=== PATIENT | female | born 1930 | race Asian ===

== ENCOUNTER 2017-01-11 14:04 | Observation (INO) ==
--- NOTE | 2017-01-11 14:26 | Emergency Department Note ---
START Narrative - START START: I did see patient immediately upon arrival and also spoke with the granddaughter and I did examine the patient. She does not have any abdominal pain. On my exam the abdomen is soft and nontender without rigidity, rebound, guarding. Minimal coarse lung sounds but no wheezing. Heart is regular without murmur. Does have fever. I did not see the patient in conjunction with the family medicine warehouse distribution specialist Dr. orozco. I did participate in the importance elements of the history, exam, diagnosis and plan. [id number]
--- NOTE | 2017-01-11 14:46 | Emergency Department Note ---
Disposition Clinical Impression: Pneumonia Qualifiers: Pneumonia type: due to unspecified organism Laterality: right Lung location: upper lobe of lung Qualified Code(s): J18.1 - Lobar pneumonia, unspecified organism Disposition: Admitted As Inpatient Condition: Good Referrals: NO,PCP [Primary Care Provider] - Forms: ED Satisfaction Letter Time of Disposition: 16:54 General Adult HPI - General Chief complaint: ED Fever Stated complaint: Fever / Dizzy / Diarrhea Time Seen by Provider: 01/11/17 14:08 Source: EMS Mode of arrival: private vehicle Limitations: language barrier Nursing Notes Reviewed: Yes Vital Signs Reviewed: Yes (febrile, hypoxic) - History of Present Illness HPI Narrative: Ms. Rahman is a 86 -year-old female that presents with abdominal pain, diarrhea and vomiting today. Patient only notes a few episodes of diarrhea and states abdominal pain has resolved. Agency was most concerned with increased urination. Additional complaints of cough, shortness of breath, dizziness, increased urination. Patient does not have home oxygen. 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 Patient sees Dr. Saha at [facility] as her primary care physician, last seen yesterday. Patient denies any sick contacts. Patient has not had any recent meals that were not shared with entire family, no other family members were sick. Family does note trip to [facility] approximately 2 months ago. PMH includes GERD, urinary incontinence, HLD, HTN. Pt Subjective Complaint: chills,dyspnea, increased urination Location: abdomen Pain Scale: 4 Quality: aching Consistency: intermittent - Related Data Home Medications Medication Instructions Recorded Confirmed Loratadine [Claritin] 10 mg PO DAILY 01/11/17 01/11/17 Meclizine HCl [Verticalm] 25 mg PO DAILY 01/11/17 01/11/17 Omeprazole [PriLOSEC] 20 mg PO DAILY 01/11/17 01/11/17 Rosuvastatin Calcium [Crestor] 10 mg PO HS 01/11/17 01/11/17 Allergies Allergy/AdvReac Type Severity Reaction Status Date / Time No Known Allergies Allergy Verified 01/17/16 20:18 All systems ED: reviewed and negative except as stated. Constitutional: Reports: chills ENT ED: Denies: congestion Cardiovascular: Denies: chest pain, syncope Respiratory: Reports: cough, dyspnea Gastrointestinal: Reports: abdominal pain, nausea, vomiting, diarrhea. Denies: hematemesis, melena, hematochezia Genitourinary: Reports: frequency. Denies: dysuria, hematuria Neurological: Reports: headache, weakness Endocrine: Reports: fatigue Past Medical History - Past Medical History Attestation: Yes The following information was validated with the patient. Source: patient, old records reviewed, obtained from family Medical history: Reports: GERD, hyperlipidemia, hypertension, other Psychiatric history: Reports: no psych history TECHNICAL SOLUTIONS ENGINEER history: Reports: no TECHNICAL SOLUTIONS ENGINEER history - Social History Smoking Status: Never smoker Smokeless Tobacco Status: No Alcohol use: Reports: none Drug use: Reports: none Physical Exam - General Limitations: language barrier General appearance: alert - Head Head exam: atraumatic, normocephalic - Eye Eye exam: Present: normal appearance, EOMI - ENT ENT exam: normal exam, normal oropharynx - Neck Neck exam: Present: normal inspection, full ROM - Chest Chest inspection: Present: normal inspection, symmetric chest wall rise - Respiratory Respiratory exam: Absent: respiratory distress, wheezes - Cardiovascular Cardiovascular exam: Present: regular rate, normal rhythm, +S1, +S2 - Abdominal Exam Abdominal exam: Present: soft, Non-Tender (to palpation), normal bowel sounds. Absent: distention, guarding, rebound Course - Reevaluation(s) Reevaluation #1: Patient started on IV antibiotics for Community acquired pneumonia. Patient complaining of chronic right shoulder pain and continued chills, requesting medication for fever. Time: 16:54 - Consultations Consultation #1: Spoke to hospitalist, Dr. Helm, who accepted patient. Time: 18:09 Vital Signs Temperature 100.9 F H 01/11/17 14:08 Pulse Rate 101 01/11/17 14:08 Respiratory Rate 16 01/11/17 14:08 Blood Pressure 173/67 01/11/17 14:08 O2 Sat by Pulse Oximetry 92 L 01/11/17 14:08 Temperature 100.9 F H 01/11/17 14:08 Pulse Rate 85 01/11/17 17:17 Respiratory Rate 18 01/11/17 17:17 Blood Pressure 154/61 01/11/17 17:17 O2 Sat by Pulse Oximetry 93 L 01/11/17 17:17 Oxygen Delivery Oxygen Delivery Nasal Cannula Medical Decision Making - Medical Records Medical records reviewed: Yes I reviewed the patient's medical records. - Lab Data Lab results reviewed: Yes I reviewed the patient's lab results. Result diagrams: 01/11/17 15:00 01/11/17 15:00 Lab Results 01/11/17 01/11/17 01/11/17 Range/Units 14:53 15:00 15:00 WBC 13.3 H (4.3-11.1) K/mcL RBC 3.90 (3.82-4.97) M/mcL Hgb 11.3 L (11.5-15.4) g/dL Hct 34.7 L (35.3-44.9) % MCV 89.0 (83.0-100.0) fL MCH 29.0 (28.0-33.3) pg MCHC 32.6 (31.6-35.5) g/dL RDW 12.6 (11.5-14.5) % Plt Count 190 (140-400) K/mcL MPV 10.3 (9.4-12.4) fL Immature Gran % 0.6 (0-4) % Seg Neutrophils % 89.1 % Lymphocytes % 4.7 % Monocytes % 5.3 % Eosinophils % 0.1 % Basophils % 0.2 % Neutrophils # 11.9 H (1.6-8.9) K/mcL Lymphocytes # 0.6 (0.6-4.6) K/mcL Monocytes # 0.7 (0.0-1.3) K/mcL Eosinophils # 0.0 (0.0-0.6) K/mcL Basophils # 0.0 (0.0-0.2) K/mcL Immature Plt Fraction 5.2 (1.1-6.1) % Sodium 134 L (136-145) mEq/L Potassium 3.6 (3.5-4.5) mEq/L Chloride 99 (98-109) mEq/L Carbon Dioxide 24 (19-29) mEq/L BUN 15 (7-20) mg/dL Creatinine 0.95 (0.57-1.11) mg/dL Est GFR ( Amer) > 60 (> 60) Est GFR (Non-Af Amer) 56 L (> 60) BUN/Creatinine Ratio 16 (6-26) Glucose 134 H (70-99) mg/dL Calculated Osmolality 281 (280-300) Lactic Acid (0.5-2.2) mmol/L Calcium 8.6 (8.6-10.8) mg/dL Urine Color Yellow (Yellow) Urine Clarity Clear (Clear) Urine pH 7.0 (5.0-8.0) pH Units Ur Specific Miles 1.020 (1.010-1.025) Urine Protein Trace (Neg-Trace) mg/dL Urine Glucose (UA) Normal (Normal) mg/dL Urine Ketones Negative (Negative) mg/dL Urine Blood Trace H (Negative) Urine Nitrite Negative (Negative) Urine Bilirubin Negative (Negative) Urine Urobilinogen Normal (Normal) mg/dL Ur Leukocyte Esterase Trace H (Negative) Urine Microscopic RBC 0-3 (0-3) per hpf Urine Microscopic WBC 0-3 (0-3) per hpf Ur Squamous Epith Cells Many H (None-Few) per lpf Urine Bacteria None Seen (None-Few) per hpf Hyaline Casts None Seen (None-Few) per lpf Ur Culture Indicated? YES A (NO) 01/11/17 Range/Units 15:00 WBC (4.3-11.1) K/mcL RBC (3.82-4.97) M/mcL Hgb (11.5-15.4) g/dL Hct (35.3-44.9) % MCV (83.0-100.0) fL MCH (28.0-33.3) pg MCHC (31.6-35.5) g/dL RDW (11.5-14.5) % Plt Count (140-400) K/mcL MPV (9.4-12.4) fL Immature Gran % (0-4) % Seg Neutrophils % % Lymphocytes % % Monocytes % % Eosinophils % % Basophils % % Neutrophils # (1.6-8.9) K/mcL Lymphocytes # (0.6-4.6) K/mcL Monocytes # (0.0-1.3) K/mcL Eosinophils # (0.0-0.6) K/mcL Basophils # (0.0-0.2) K/mcL Immature Plt Fraction (1.1-6.1) % Sodium (136-145) mEq/L Potassium (3.5-4.5) mEq/L Chloride (98-109) mEq/L Carbon Dioxide (19-29) mEq/L BUN (7-20) mg/dL Creatinine (0.57-1.11) mg/dL Est GFR ( Amer) (> 60) Est GFR (Non-Af Amer) (> 60) BUN/Creatinine Ratio (6-26) Glucose (70-99) mg/dL Calculated Osmolality (280-300) Lactic Acid 2.0 (0.5-2.2) mmol/L Calcium (8.6-10.8) mg/dL Urine Color (Yellow) Urine Clarity (Clear) Urine pH (5.0-8.0) pH Units Ur Specific Miles (1.010-1.025) Urine Protein (Neg-Trace) mg/dL Urine Glucose (UA) (Normal) mg/dL Urine Ketones (Negative) mg/dL Urine Blood (Negative) Urine Nitrite (Negative) Urine Bilirubin (Negative) Urine Urobilinogen (Normal) mg/dL Ur Leukocyte Esterase (Negative) Urine Microscopic RBC (0-3) per hpf Urine Microscopic WBC (0-3) per hpf Ur Squamous Epith Cells (None-Few) per lpf Urine Bacteria (None-Few) per hpf Hyaline Casts (None-Few) per lpf Ur Culture Indicated? (NO) - Radiology Data Radiology results reviewed: Yes I reviewed the patient's radiology results. Chest X-Ray 01/11/17 14:49 IMPRESSION: 1. Subtle right upper lobe airspace disease concerning for pneumonia. Recommend chest radiograph in 8 weeks to confirm resolution. D/ / Dariusz Walker MD / Dariusz Walker MD Interpreting Provider: Dariusz Walker MD
[2017-01-11] MEDS ORDERED: 0.9 % Sodium Chloride 1,000 ML IVC ONE (14:49)
[2017-01-11 14:59] LABS: Bilirubin,Urine Negative (Negative); Blood,Urine Trace (Negative); Clarity,Urine Clear (Clear); Color,Urine Yellow (Yellow); Glucose,Urine (UA) Normal (Normal); Ketones,Urine Negative (Negative); Leukocyte Esterase,Urine Trace (Negative); Nitrite,Urine Negative (Negative); Protein,Urine Trace mg/dL (Neg-Trace); Urobilinogen,Urine Normal (Normal)
[2017-01-11 15:01] LABS: Bacteria,Urine None Seen per hpf (None-Few); Hyaline Casts,Urine None Seen per lpf (None-Few); RBC,Urine 0-3 per hpf (0-3); Squamous Epithelial Cell,Urine Many per lpf (None-Few); WBC,Urine 0-3 per hpf (0-3)
[2017-01-11 15:08] LABS: Basophils % 0.2 %; Eosinophils % 0.1 %; Hematocrit 34.7 % (35.3-44.9); Hemoglobin 11.3 g/dL (11.5-15.4); Immature Granulocytes % 0.6 % (0-4); Immature Platelets 5.2 % (1.1-6.1); Lymphocytes # 0.6 K/mcL (0.6-4.6); Lymphocytes % 4.7 %; Mean Corpuscular HGB Conc 32.6 g/dL (31.6-35.5); Mean Platelet Volume 10.3 fL (9.4-12.4); Monocytes # 0.7 K/mcL (0.0-1.3); Monocytes % 5.3 %; Neutrophils # 11.9 K/mcL (1.6-8.9); Platelet Count 190 K/mcL (140-400); Red Cell Distribution Width 12.6 % (11.5-14.5); Segmented Neutrophils % 89.1 %
[2017-01-11 15:19] LABS: BUN/Creatinine Ratio 16 (6-26); Blood Urea Nitrogen 15 mg/dL (7-20); Calcium 8.6 mg/dL (8.6-10.8); Carbon Dioxide 24 mEq/L (19-29); Chloride 99 mEq/L (98-109); Glucose 134 mg/dL (70-99); Osmolality,Calculated 281 (280-300); Potassium 3.6 mEq/L (3.5-4.5); Sodium 134 mEq/L (136-145); eGFR For African Americans > 60 (> 60); eGFR For Non-African Americans 56 (> 60)
[2017-01-11] MEDS ORDERED: Azithromycin 500 MG in D5% in Water 250 ML IVPB ONE (16:09)
[2017-01-11] MEDS ORDERED: Acetaminophen 325 MG TABLET PO ONE (16:50)
[2017-01-11] MEDS ORDERED: Albuterol 2.5 MG/3 ML NEBULIZER IH PRN (20:35)
[2017-01-11] MEDS ORDERED: Ketorolac 30 MG/ML VIAL IVP STA (20:35)
[2017-01-11] MEDS ORDERED: Acetaminophen 325 MG TABLET PO PRN (20:35)
[2017-01-11] MEDS ORDERED: Ondansetron 4 MG/2 ML VIAL IVP PRN (20:35)
[2017-01-11] MEDS ORDERED: Naloxone 0.4 MG/ML INJ IVP PRN (20:35)
[2017-01-11] MEDS ORDERED: *HR* Morphine 2 MG/ML SYRINGE IVP PRN (20:35)
[2017-01-11] MEDS ORDERED: Benzonatate 100 MG CAPSULE PO PRN (20:35)
[2017-01-11] MEDS ORDERED: *HR* Enoxaparin 30 MG/0.3 ML SYRINGE IVP ONE (20:35)
[2017-01-11] MEDS ORDERED: 0.9 % Sodium Chloride 1,000 ML IVC SCH (20:45)
--- NOTE | 2017-01-11 20:50 | Internal Med History&Physical ---
Date of Encounter: 01/11/17 Time of Encounter: 20:30 Assessment and Plan (1) CAP (community acquired pneumonia) Current visit: Yes Status: Acute . (2) Sepsis Current visit: Yes Status: Acute . Qualifiers: Sepsis type: sepsis due to unspecified organism Qualified Code(s): A41.9 - Sepsis, unspecified organism (3) Non-Greek speaking patient Current visit: Yes Status: Chronic . (4) Frail elderly Current visit: Yes Status: Chronic . Internal Medicine - H&P: HPI Chief complaint: Fever. Dizziness. Weakness. Diarrhea w/abd pain. Admitted From: Emergency Dept Plans for Post Hospital Care: Home History of present illness: Ms. Rahman is a 86 year old female [id number] [place] immigrant to the [facility] via the emergency department when she presented via EMS services from home in the company of family with complaints of fever, postural dizziness, generalized weakness and episodes of loose diarrheal stools, nausea, vomitingx1 and urinary incontinencex1. Patient required a family member at the bedside to serve as official court interpreter throughout initial ED evaluation and admission to inpatient status. SHe acknowledged SOME UPPER ABDOMINAL DISCOMFORT WELL SOME RIGHT UPPER BACK AND SHOULDER DISCOMFORT WHICH SEEMED AGGRAVATED WITH MOVEMENT AND WITH COUGH. SHE DENIED OVERT CHEST PAIN OR DYSPNEA. DID ACKNOWLEDGE SOME CHEST DISCOMFORT WITH COUGH AND WITH DEEP INSPIRATION. Cough scantily productive of clear thick sputum. Shortness of breath experienced with minimal activity. Postural dizziness, chills and a sense of generalized weakness acknowledged. She has not recently been prescribed any oral antibiotic therapy within the last month or more. She was seen at an urgent care center within the week of this admission but was discharged with no findings being made or changes in current scheduled treatments. She denies any episodes of bleeding events . There is denial of any sick contacts. Family believes that she is current with influenza and pneumococcal vaccinations but cannot be validated at this time. She has not received any recent meals that were not shared with the entire family. No other family members and close contact with patient has not recently been ill. There has been no recent travel especially to [facility] within the last 2-3 months. Initial vital signs showed a temperature 100.9 pulse 101 respirations 18, BP 173/67 O2 saturation 92 % on 2 L per nasal cannula. WBC 13.3 hemoglobin 11.3 platelets 190,000. Differential showed an increase in neutrophils. Metabolic panel normal except sodium 134 glucose 134 with GFR 56. Urinalysis showed trace protein and trace blood and trace leukocyte esterase. 3 RBC. 3 WBC. Many epithelial cells. Lactic acid. Portable chest x-ray showed subtle right upper lobe airspace disease concerning for pneumonia. Left basilar scarring versus atelectasis. No pneumothorax or pleural effusion. Lung volumes. Preliminary impression suggests acute community-acquired pneumonia presenting with acute hypoxic respiratory failure. Systemic inflammatory response syndrome and sepsis criteria are present upon admission. Workup and treatment progress comprehensively. The patient was visited and interviewed and examined. Cumulative laboratory and radiographic data base will be considered and discussed. Pertinent ancillary medical records including ECW and PCI documentation when available was reviewed and considered. Given the patient's presenting concerns, past medical history, clinical findings and symptoms, she is admitted at this time will undergo further evaluation and disposition. Orders were written as per Computerized physician order planner system.......................................................................... .................... Consultative opinion will be sought as clinical circumstances justify. Pain management needs will be addressed. Laboratory /radiographic data base will be updated as appropriate. Studies include: Cultures blood urine sputum, GI stool panel, pt/inr, aptt, ddimer, cardiac injury panel, BNP, UA, metabolic and hematologic panel, magnesium, phosphorus, ionized calcium, thyroid panel, lipid profile, A1c, C-peptide, CRP, sedimentation rate, respiratory infection profile, respiratory virus panel, blood gas, lactic acid, amylase, lipase, serologies, etc. Precautions: Aspiration, fall, delirium protocol/surveillance initiated. Telemetry with continuous hemodynamic monitoring and pulse oximetry initiated. Empiric antibiotic coverage: Intravenous Rocephin and azithromycin pending culture data. Special studies: CT/CTA chest, CT abd/pelvis, chest x-ray, telemetry, EKG. Pulmonary toilet: Incentive spirometry, aerosol bronchodilator, mucolytic, antitussive, supplemental oxygen. Corticosteroid therapy. CPAP/BiPAP supplemental oxygen delivery. Aerosol Mucomyst therapy. Fluid and electrolyte repletion efforts will proceed. Careful attention to fluid balance and renal recovery will be emphasized. Avoidance of nephrotoxic exposure and adverse drug drug interaction in the setting of impaired renal function will be monitored closely. Acute coronary syndrome protocol/surveillance initiated. DVT and PUD prophylaxis initiated: PPI therapy, intermittent pneumatic cuffs. Subcutaneous heparin/Lovenox. Early ambulation will be encouraged. Immunization updates recommended. Influenza and pneumococcal vaccinations as part of ongoing preventative healthcare recommendations strongly recommended. Smoking cessation counseling briefly addressed. Patient is a nonsmoker. Advanced care directive discussion briefly addressed. Patient does not declare any healthcare restrictions at this time. Cardiovascular risk appraisal and cardiovascular risk reduction efforts will be emphasized. Physical /occupational therapy counseled to evaluate patient's functional capacity and progress mobility if her circumstances permit. Nutrition/dietary education counseling may be considered as circumstances justify. Outpatient medication schedules will be reviewed, confirmed and facilitated as appropriate. Reconciliation of home treatments including adjustments, substitutions and reintroduction into the treatment regimen will address necessary maintenance therapies for chronic pre-existing medical conditions. Plan of care has been reviewed and discussed in detail with the patient and family/official court interpreter. Questions addressed. Hospital course dictated by clinical findings, treatment response and potential consultative interventions. Patient is a risk for further acute clinical decline due to her age, chief complaints and comorbid conditions. Condition is serious. Prognosis is guarded. CODE STATUS is full. Past Med Surg Social Fam HX - Past Medical History Source: old records reviewed, obtained from family Medical history: arthritis, GERD, hyperlipidemia, hypertension, renal disease ( Stress urinary/incontinence. CKD II-III.), thyroid disease (History of thyroid nodule status post FNA/biopsy.), other (Allergic rhinitis. Positional dizziness. Hearing loss; hearing aid dependent. N/N anemia. ) Psychiatric history: no psych history - Past Surgical History Surgical History: no surgical history, other - Social History Smoking Status: Never smoker Smokeless Tobacco Status: No Alcohol use: none Drug use: none Occupational status: retired Current living situation: Home, With Family Activity Level: Independent ambulation, Uses cane/walker, Mostly sedentary Recent Out of Country Travel Within the Last 8 Weeks: No Exposure or Possible Exposure to Illness During Travel: No - Family History Mother History Unknown: Yes Living Status: Father History Unknown: Yes Living Status: Internal Medicine - H&P: Meds Loratadine [Claritin] 10 mg PO DAILY 03/30/17 [History] Meclizine HCl [Verticalm] 25 mg PO DAILY 01/11/17 [History] Omeprazole [PriLOSEC] 20 mg PO DAILY 01/11/17 [History] Rosuvastatin Calcium [Crestor] 10 mg PO HS 01/11/17 [History] Allergies No Known Allergies Allergy (Verified 01/17/16 20:18) ROS unobtainable: due to mental status All Systems PM: A 10-system review of systems was performed and is negative for pertinent findings except as documented above in the HPI. Patient Problems (Last Updated 01/11/17 @ 20:50 by Sukh Vasquez MD) Pneumonia (Acute Medical) J18.9 CAP (community acquired pneumonia) (Acute Medical) J18.9 Sepsis (Acute Medical) A41.9 Bronchitis (Inactive Medical) Allergies Allergy/AdvReac Type Severity Reaction Status Date / Time No Known Allergies Allergy Verified 01/17/16 20:18 - Constitutional Constitutional: as per HPI, chills, fatigue, malaise, weakness, other, no fever( s), no night sweats - EENT Eyes: as per HPI, no change in vision, no discharge, no pain, no photophobia Ears: as per HPI, decreased hearing, no ear discharge, no ear pain, no tinnitus Nose, mouth and throat: as per HPI, sore throat, no dysphagia, no nasal discharge, no neck pain - Cardiovascular Cardiovascular ROS IM: as per HPI, chest pain, lightheadedness, other, no diaphoresis, no dyspnea, no palpitations, no syncope - Respiratory Respiratory: as per HPI, cough, dyspnea on exertion, chest congestion, pain with cough, no dyspnea, no hemoptysis, no wheezing, no excessive phlegm production - Gastrointestinal Gastrointestinal: as per HPI, abdominal pain, change in stool character, diarrhea, loose stools, other, no coffee ground emesis, no dysphagia, no hematemesis, no hematochezia, no melena, no nausea, no vomiting - Genitourinary Genitourinary: as per HPI, urinary incontinence, other, no change in urinary stream, no dysuria, no flank pain, no hematuria - Musculoskeletal Musculoskeletal ROS IM: as per HPI, back pain, other, no numbness, no tingling - Integumentary Integumentary IM: as per HPI, no rash, no unusual bruising - Neurological Neurological ROS: as per HPI, dizziness, headache(s), weakness, other, no confusion, no convulsions, no focal weakness, no numbness, no tingling, no tremor(s) - Psychiatric Psychiatric: as per HPI - Endocrine Endocrine IM: as per HPI - Hematologic/Lymphatic Hematologic/Lymphatic: as per HPI, no easy bruising - Allergic/Immunologic Allergic/Immunologic: as per HPI - Constitutional Vitals: Temp Pulse Resp BP Pulse Ox 99.5 F 93 20 152/72 92 L 01/11/17 19:20 01/11/17 19:20 01/11/17 19:20 01/11/17 19:20 01/11/17 20:17 Vital Signs Temp Pulse Resp BP Pulse Ox 01/11/17 20:17 92 L 01/11/17 19:20 99.5 F 93 20 152/72 92 L 01/11/17 18:43 99.8 F H 18 143/67 01/11/17 17:17 85 18 154/61 93 L 01/11/17 14:08 100.9 F H 101 16 173/67 92 L Intake and Output 01/11/17 01/11/17 01/11/17 07:59 15:59 23:59 Intake Total 1100 / 1100 Output Total 0 / 0 Balance 1100 / 1100 Intake: IV Fluids 1100 / 1100 0.9 % Sodium Chloride 1, 1000 / 1000 000 ML @ 3750 mls/hr IVC .Q16M ONE Rx#:[id number] Rocephin 2,000 MG In 100 / 100 Dextrose 5% (Minibag+) 100 ML 100 ML @ 200 mls/ hr IVPB ONCE ONE Rx#: [id number] Oral 0 / 0 Output: Urine 0 / 0 Other: Stool Size Large Stool Consistency loose # Voids 1 # Bowel Movements 1 Weight 58.967 kg 67.177 kg Patient Weight 01/11/17 23:59 Weight 67.177 kg General appearance: Present: cooperative, mild distress, A&O X 3, answers questions appropriately - Head Head exam: Present: atraumatic, normal inspection, normocephalic - Eye Eye exam: Present: EOMI, PERRL, conjuntiva pink, sclera anicteric Pupils: Present: normal accommodation, PERRL - ENT ENT exam: Present: mucous membranes moist, normal oropharynx - Neck Neck exam general surgery: Present: full ROM, supple, trachea midline. Absent: lymphadenopathy, nuchal rigidity - Respiratory Respiratory exam: Present: chest wall tenderness, decreased breath sounds, wheezes. Absent: accessory muscle use, CTAB, rales, rhonchi, stridor - Cardiovascular Cardiovascular exam: Present: distant heart sounds, RRR, +S1, +S2, tachycardia. Absent: diastolic murmur, gallop, rubs, systolic murmur - GI/Abdominal GI/Abdominal exam: Present: hyperactive bowel sounds, soft, tenderness, no peritoneal signs. Absent: distended, mass - Extremities Exam Extremities exam: Present: full ROM, warm, radial pulses palpable and symetrical. Absent: calf tenderness, cyanotic, pedal edema - Neurological Exam Neurological exam: Present: alert, CN II-XII intact, oriented X3, no focal deficits. Absent: pronater drift, facial droop, speech deficit - Expanded Neurological Exam Neurological exam expanded: Present: protecting the airway. Absent: ataxia, expressive aphasia, inattentive, receptive aphasia, total aphasia, tremor Patient oriented to: Present: person, place (hospital= correct), time (night time= correct) Speech: Present: fluid speech Cranial Nerves: EOM's intact PM: Normal, gag reflex PM: Normal, nystagmus PM: Normal, tongue deviation PM: Normal Coma Scale Eye Opening: Spontaneous Coma Scale Motor Response: Obeys Commands Coma Scale Verbal Response: Confused Coma Scale Total: 14 - Psychiatric Psychiatric exam: Present: normal affect, normal mood - Skin Skin exam: Present: dry, intact, warm. Absent: petechiae, rash, urticaria, vesicles Internal Med - H&P Results - Labs CBC & Chem 7: 01/11/17 15:00 01/11/17 15:00 Labs: Short CBC 01/11/17 Range/Units 15:00 WBC 13.3 H (4.3-11.1) K/mcL Hgb 11.3 L (11.5-15.4) g/dL Hct 34.7 L (35.3-44.9) % Plt Count 190 (140-400) K/mcL Neutrophils # 11.9 H (1.6-8.9) K/mcL BMP 01/11/17 Range/Units 15:00 Sodium 134 L (136-145) mEq/L Potassium 3.6 (3.5-4.5) mEq/L Chloride 99 (98-109) mEq/L Carbon Dioxide 24 (19-29) mEq/L BUN 15 (7-20) mg/dL Creatinine 0.95 (0.57-1.11) mg/dL Glucose 134 H (70-99) mg/dL Calcium 8.6 (8.6-10.8) mg/dL Urine 01/11/17 Range/Units 14:53 Urine Color Yellow (Yellow) Urine Clarity Clear (Clear) Urine pH 7.0 (5.0-8.0) pH Units Ur Specific Brimley 1.020 (1.010-1.025) Urine Protein Trace (Neg-Trace) mg/dL Urine Glucose (UA) Normal (Normal) mg/dL Abnormal lab results WBC 13.3 K/mcL (4.3-11.1) H 01/11/17 15:00 Hgb 11.3 g/dL (11.5-15.4) L 01/11/17 15:00 Hct 34.7 % (35.3-44.9) L 01/11/17 15:00 Neutrophils # 11.9 K/mcL (1.6-8.9) H 01/11/17 15:00 Sodium 134 mEq/L (136-145) L 01/11/17 15:00 Est GFR (Non-Af Amer) 56 (> 60) L 01/11/17 15:00 Glucose 134 mg/dL (70-99) H 01/11/17 15:00 Urine Blood Trace (Negative) H 01/11/17 14:53 Ur Leukocyte Esterase Trace (Negative) H 01/11/17 14:53 Ur Squamous Epith Cells Many per lpf (None-Few) H 01/11/17 14:53 Ur Culture Indicated? YES (NO) A 01/11/17 14:53 Laboratory Last Values WBC 13.3 K/mcL (4.3-11.1) H 01/11/17 15:00 RBC 3.90 M/mcL (3.82-4.97) 01/11/17 15:00 Hgb 11.3 g/dL (11.5-15.4) L 01/11/17 15:00 Hct 34.7 % (35.3-44.9) L 01/11/17 15:00 MCV 89.0 fL (83.0-100.0) 01/11/17 15:00 MCH 29.0 pg (28.0-33.3) 01/11/17 15:00 MCHC 32.6 g/dL (31.6-35.5) 01/11/17 15:00 RDW 12.6 % (11.5-14.5) 01/11/17 15:00 Plt Count 190 K/mcL (140-400) 01/11/17 15:00 MPV 10.3 fL (9.4-12.4) 01/11/17 15:00 Immature Gran % 0.6 % (0-4) 01/11/17 15:00 Seg Neutrophils % 89.1 % 01/11/17 15:00 Lymphocytes % 4.7 % 01/11/17 15:00 Monocytes % 5.3 % 01/11/17 15:00 Eosinophils % 0.1 % 01/11/17 15:00 Basophils % 0.2 % 01/11/17 15:00 Neutrophils # 11.9 K/mcL (1.6-8.9) H 01/11/17 15:00 Lymphocytes # 0.6 K/mcL (0.6-4.6) 01/11/17 15:00 Monocytes # 0.7 K/mcL (0.0-1.3) 01/11/17 15:00 Eosinophils # 0.0 K/mcL (0.0-0.6) 01/11/17 15:00 Basophils # 0.0 K/mcL (0.0-0.2) 01/11/17 15:00 Immature Plt Fraction 5.2 % (1.1-6.1) 01/11/17 15:00 Sodium 134 mEq/L (136-145) L 01/11/17 15:00 Potassium 3.6 mEq/L (3.5-4.5) 01/11/17 15:00 Chloride 99 mEq/L (98-109) 01/11/17 15:00 Carbon Dioxide 24 mEq/L (19-29) 01/11/17 15:00 BUN 15 mg/dL (7-20) 01/11/17 15:00 Creatinine 0.95 mg/dL (0.57-1.11) 01/11/17 15:00 Est GFR ( Amer) > 60 (> 60) 01/11/17 15:00 Est GFR (Non-Af Amer) 56 (> 60) L 01/11/17 15:00 BUN/Creatinine Ratio 16 (6-26) 01/11/17 15:00 Glucose 134 mg/dL (70-99) H 01/11/17 15:00 Calculated Osmolality 281 (280-300) 01/11/17 15:00 Lactic Acid 2.0 mmol/L (0.5-2.2) 01/11/17 15:00 Calcium 8.6 mg/dL (8.6-10.8) 01/11/17 15:00 Urine Color Yellow (Yellow) 01/11/17 14:53 Urine Clarity Clear (Clear) 01/11/17 14:53 Urine pH 7.0 pH Units (5.0-8.0) 01/11/17 14:53 Ur Specific Brimley 1.020 (1.010-1.025) 01/11/17 14:53 Urine Protein Trace mg/dL (Neg-Trace) 01/11/17 14:53 Urine Glucose (UA) Normal mg/dL (Normal) 01/11/17 14:53 Urine Ketones Negative mg/dL (Negative) 01/11/17 14:53 Urine Blood Trace (Negative) H 01/11/17 14:53 Urine Nitrite Negative (Negative) 01/11/17 14:53 Urine Bilirubin Negative (Negative) 01/11/17 14:53 Urine Urobilinogen Normal mg/dL (Normal) 01/11/17 14:53 Ur Leukocyte Esterase Trace (Negative) H 01/11/17 14:53 Urine Microscopic RBC 0-3 per hpf (0-3) 01/11/17 14:53 Urine Microscopic WBC 0-3 per hpf (0-3) 01/11/17 14:53 Ur Squamous Epith Cells Many per lpf (None-Few) H 01/11/17 14:53 Urine Bacteria None Seen per hpf (None-Few) 01/11/17 14:53 Hyaline Casts None Seen per lpf (None-Few) 01/11/17 14:53 Ur Culture Indicated? YES (NO) A 01/11/17 14:53 - Impressions Chest X-Ray 01/11/17 14:49 IMPRESSION: 1. Subtle right upper lobe airspace disease concerning for pneumonia. Recommend chest radiograph in 8 weeks to confirm resolution. D/ / Dariusz Walker MD / Dariusz Walker MD Interpreting Provider: Dariusz Walker MD - Attending Attestation ED Activity Last Name: Josiah Status: Departed First Name: Rogelio Priority: 3 Middle: Condition: Good Birthdate: 1930 Arrival Date/Time: 01/11/17 14:04 Age at Arrival: 86 Arrival Mode: Walk-In Sex: F Triaged At: 01/11/17 14:05 Language: NEPALI Time Seen by Provider: 01/11/17 14:08 Stated Complaint: Fever / Dizzy / Diarrhea Chief Complaint: ED Fever ED Location: [facility] ED Area: Station: Group: N ED Provider: Gato Mayo ED Midlevel Provider: Eduardo Ceja ED Nurse: Isael Horner Primary Care Provider: SHIRAPCP Status/Phase DtTm/Value User/Action Admitted Observation Patient 01/11/17 18:18:34 Daemsalas,Nicolasa Referrals (Provider) PCP NO Deleted 01/11/17 18:18:23 Niru Truong Attending Provider Topher Higgins Admitting Provider Kat Higgins With Doctor 01/11/17 14:46:13 Eduardo Ceja Referrals (Provider) PCP NO Added 01/11/17 14:40:25 Eduardo Ceja Midlevel Provider Eduardo Higgins 01/11/17 14:15:28 Nayely Mallory Primary Care Provider PCP NO New 01/11/17 14:08:55 Gato Mayo Ed Provider Gato Higgins In Room 01/11/17 14:07:42 Isael Horner Ed Nurse Isael Horner 01/11/17 14:06:47 Isael Horner Stated Complaint Fever / Dizzy / Diarrhea Edit 01/11/17 14:04:26 Isael Horner Chief Complaint ED Fever New Stated Complaint Fever / Dizzy New Assessments/Treatments 12 lead ECG assessment Start: 01/11/17 14: 05 Freq: Status: Active Created 01/11/17 14:05 System (Rec: 01/11/17 14:05 System [id number]) 12 lead ECG assessment Start: 01/11/17 20: 42 Freq: NOW Status: Active Created 01/11/17 20:47 [id number] (Rec: 01/11/17 20:47 BKG DAEMON CORRECTION-BG16 ) Ambulate Start: 01/11/17 18: 19 Freq: Status: Active Created 01/11/17 18:19 BAT (Rec: 01/11/17 18:19 BAT [id number]) Apply anti-embolic stockings (graduated) Start: 01/11/17 20: 35 Freq: .NOW Status: Active Created 01/11/17 20:47 [id number] (Rec: 01/11/17 20:47 BKG DAEMON CORRECTION-BG16 ) Bed rest Start: 01/11/17 20: 37 Freq: .CONT Status: Active Created 01/11/17 20:47 [id number] (Rec: 01/11/17 20:47 BKG DAEMON CORRECTION-BG16 ) Bed rest w/bathroom privileges Start: 01/11/17 20: 37 Freq: .PRN Status: Active Created 01/11/17 20:47 [id number] (Rec: 01/11/17 20:47 BKG DAEMON CORRECTION-BG16 ) Bedside Procedures Start: 01/11/17 18: 19 Freq: .PRN Status: Active Created 01/11/17 18:19 BAT (Rec: 01/11/17 18:19 BAT [id number]) COPD Discharge Checklist Start: 01/11/17 20: 36 Freq: .atdischarge Status: Active Created 01/11/17 20:47 [id number] (Rec: 01/11/17 20:47 BKG DAEMON CORRECTION-BG16 ) Cardiac Monitoring Med/Surg Start: 01/11/17 20: 37 Freq: .CONT Status: Active Created 01/11/17 20:47 [id number] (Rec: 01/11/17 20:47 BKG DAEMON CORRECTION-BG16 ) Cardiac monitoring Start: 01/11/17 14: 05 Freq: Status: Active Created 01/11/17 14:05 System (Rec: 01/11/17 14:05 System [id number]) Cardiac monitoring Start: 01/11/17 20: 36 Freq: .ONCE Status: Active Created 01/11/17 20:47 [id number] (Rec: 01/11/17 20:47 [email or web address] ) Collect Specimen Start: 01/11/17 14: 05 Freq: Status: Active Created 01/11/17 14:05 System (Rec: 01/11/17 14:05 System [id number]) Collect Specimen: [id number] Start: 01/11/17 14: 53 Freq: ONCE Status: Complete Created 01/11/17 14:50 [id number] (Rec: 01/11/17 14:50 [email or web address] ) Document 01/11/17 14:53 RB (Rec: 01/11/17 14:54 RB [id number]) Edit Status 01/11/17 14:53 RB (Rec: 01/11/17 14:54 RB [id number]) Active=>Completed Critical Value Reporting Start: 01/11/17 18: 19 Freq: .PRN Status: Active Created 01/11/17 18:19 BAT (Rec: 01/11/17 18:19 BAT [id number]) Discharge Assessment Start: 01/11/17 18: 17 Freq: Status: Active Created 01/11/17 18:18 System (Rec: 01/11/17 18:18 System [email or web address]) Discontinue Saline Lock Start: 01/11/17 14: 05 Text: Discontinue Saline Lock/IV prior to discharge Status: Active Freq: Created 01/11/17 14:05 System (Rec: 01/11/17 14:05 System [id number]) Dysphagia screening, nursing Start: 01/11/17 14: 05 Freq: Status: Active Created 01/11/17 14:05 System (Rec: 01/11/17 14:05 System [id number]) ED Discharge Assessment Start: 01/11/17 14: 05 Freq: Status: Active Created 01/11/17 14:05 System (Rec: 01/11/17 14:05 System [id number]) Document 01/11/17 18:43 RB (Rec: 01/11/17 18:44 RB [id number]) ED Discharge Assessment Disposition ED Discharge Disposition Admitted ED Condition on Discharge Good Med Rec/Patient Pharmacy Completed? Yes Admission/Transfer Admitted to 2A Bed assigned 11 Transported by motor vehicle technician Transported with IV continuing medication Report Report given to Nurse Information relayed patient's care treatments medications given condition recent/anticipated changes Clinical Documentation Summary Provided Yes Discharge Vital Signs Temperature (97.6 F-99.6 F) 99.8 F H Pain Scale 0 Pain Scale Used Standard (1-10) Blood Pressure (mm Hg) 143/67 Heart rate 93 Respiratory Rate (breaths/min) 18 Oxygen Delivery Room Air Oxygen Saturation 92 Critical Care Critical Care Minutes 0 ED Fever Assessment Start: 01/11/17 14: 05 Freq: Status: Active Created 01/11/17 14:05 System (Rec: 01/11/17 14:05 System [id number]) Document 01/11/17 14:19 RB (Rec: 01/11/17 14:20 RB [id number]) Fever Assessment Level 1 Infection Sepsis Infection Criteria Present none Level 2 SIRS Sepsis SIRS Criteria temperature > 100.9 or < 96.8 F HR > 90 bpm Response Sepsis Screen No Definite Risk Sepsis Action Taken no action required Complaint Information Symptoms/Complaint Fever Diarrhea Onset This AM Maximum Temperature 100.9 F Temperature Source Oral Context Recent Travel Improves With Nothing Worsens With Nothing Associated Symptoms Diarrhea Treatment Prior to Arrival None Mental Status Level Of Consciousness Awake Alert Appropriate Patient Orientation Person Place Time Name Age Date of Day of Month Day of Week Month Year Time of Day Respiratory Status Respiratory Depth Normal Respiratory Effort Normal for Patient Respiratory Pattern Regular Oxygen Delivery Method Nasal Cannula Breath Sounds Anterior Throughout Breath Sounds Diminished Nausea & Vomiting Nausea/Vomiting Presence Nauseated ED Pain Assessment Start: 01/11/17 14: 05 Freq: Status: Active Created 01/11/17 14:05 System (Rec: 01/11/17 14:05 System [id number]) Fall Precautions Acute Start: 01/11/17 18: 19 Freq: Q12H Status: Active Created 01/11/17 18:19 BAT (Rec: 01/11/17 18:19 BAT [id number]) Document 01/11/17 20:17 CNJ (Rec: 01/11/17 20:30 CNJ [id number]) [facility] Fall Risk Assessment Tool Fall Risk Score Calculation-Select the appropriate option in each category. Age greater than or equal to 80 years (3 points) Fall History No falls within last 6 months (0 points) Elimination, Bowel, and Urine Urgency or frequency (2 points ) Medications: Includes MOLECULAR BIOLOGY PROFESSOR/opiates, N/A (0 points) antivulsants, ant-hypertensives, diuretics, hypnotics, Patient Care Equipment: Any equipment One present (1 point) that tethers patient (e.g. IV infusions, chest tube, indwelling Mobility Requires assistance or supervision for transfer/ ambulation (2 points) Unsteady gait (2 points) Cognition Altered awareness of immediate physical environment (1 point ) Total Fall Risk Score 11 Fall Risk Category Moderate Risk (6-13) Fall Risk Interventions Low Risk (0-5) Low Risk Interventions Bed in lowest position Top side rails up x 2 Secure brake on bed Use properly fitting non-skid footwear Call light and frequently needed objects within reach Encourage patients/families to call for assistance when needed Fall education including risk assessment, injury risk and routine/ Inspect environment for safety and communication risk Supervise and assist with toileting/ADLs as needed Moderate Risk (6-13) Complete in addition to Low Risk Interventions Moderate Risk Interventions Institue fall-risk tooklit ( yellow flag, yellow non-skid socks and Flu Vaccine Screen Start: 01/11/17 18: 17 Freq: Status: Active Created 01/11/17 18:18 System (Rec: 01/11/17 18:18 System [place] [id number]) Document 01/11/17 19:12 [facility] (Rec: 01/11/17 19:12 [id number] Flu Vaccine Screen Indications Influenza vaccine indications 6 months of age or older No Vaccine Given Flu Vaccine Contraindications Previously Received Current Flu Season Information provided Vaccine Information Sheet Given(Version Yes 05/21/2015) Patient meets criteria for vaccination No and consents to receive it Flu Vaccine Screen Start: 01/11/17 18: 19 Freq: .ONCE Status: Inactive Created 01/11/17 18:19 BAT (Rec: 01/11/17 18:19 [id number] Head of bed elevation Start: 01/11/17 20: 36 Freq: .ONCE Status: Active Created 01/11/17 20:47 [id number] (Rec: 01/11/17 20:47 BKG DAADAM [place] [id number] ) Hygiene activity Start: 01/11/17 18: 19 Freq: .PRN Status: Active Created 01/11/17 18:19 [facility] (Rec: 01/11/17 18:19 [id number]) IV-Invasive Line Management Start: 01/11/17 18: 19 Text: *No BP or peripheral blood draws in affected Status: Active extremity *Use in-line filters for all IV infusions. *Change IV tubing every 96 hours and every 24 hours for TPN *Begin infusions through new PICC with new tubing. *Do not use smaller than 10cc syringe to flush PICC * Flush each line with 10ml normal saline before and after each use, or every 12 hours or PRN while in the hospital *Flush each lumen with 20ml normal saline with each TPN bag change or disconnect, and replace the positive displacement cap. *When flushing the PICC line, flush turbulently using a "[id number]" method * Notify provider if unable to aspirate blood from either lumen * Notify Vascular Access Team of questions or concerns that arise regarding care/use of PICC Freq: Q4H Created 01/11/17 18:19 [facility] (Rec: 01/11/17 18:19 [id number]) Document 01/11/17 20:17 [facility] (Rec: 01/11/17 20:30 [facility] [id number]) IV/Invasive Line Assessment IV Location Left Hand Date of Insertion 01/11/17 Reason for Line Insertion/Rationale for Replace Lost Fluids Insertion Provide Access for IV Medication(s) Provide Access for Emergency Gauge (gauge) 18 IV Catheter Type Peripheral IV Site Observation Patent Dressing Applied Transparent Dressing Line Care Saline Flush P-Locked Cap(s) Changed Incentive Spirometry Start: 01/11/17 20: 35 Freq: .6 TIMES PER HR WHILE AWAKE Status: Active Created 01/11/17 20:47 [id number] (Rec: 01/11/17 20:47 ZACHARY OLAMIDE CORRECTION-[id number] ) Initial Patient Assessment Start: 01/11/17 18: 19 Freq: .ONCE Status: Active Created 01/11/17 18:19 BAT (Rec: 01/11/17 18:19 [id number]) Document 01/11/17 18:59 BAT (Rec: 01/11/17 19:07 [id number] General Questions General Date of Arrival on Unit 01/11/17 Time of Arrival on Unit 18:59 Admitted From Home Chief Complaint n/v/d, dizzy History Provided By Patient Orientation To Call Light Bed Phone TV Bathroom Smoking Policy Visiting Hours Procedures ID Bracelet On Emergency Contact Name Marina Lin Relationship to Patient granddaughter Emergency Contact Bands applied ID band Patient Health Portal Portal Information Patient was provided information on Yes accessing patient portal Portal Enrollment Patient Requests Portal Enrollment No Reason No Portal Enrollment Patient Declines Malnutrition Screening Tool (MST) Malnutrition Screening Tool Have You Recently Lost Weight Without No Trying Advance Directives Advance Directives Advance Directives No Advance Directives Information Provided Yes Patient Rights Patient Rights Copy of Rights Given and Verbalizes Yes Understanding Tobacco Free [place]: Copy of AHS Yes Statement Given and Patient Verbalizes Understanding Communication Ability Language Primary Language NEPALI Preferred Language NEPALI [employer]al [employer] Counselors Required Yes Learning Ability Communication Tools [employer] Counselors Caregiver Communication Skills No Impairment Impairment Hearing Hearing Ability Hard of Hearing Vision Visual Assistive Devices None Pain Assessment Chronic Pain Do You Have Any Ongoing (Chronic) Pain No Problems Educated on Pain Scale Yes Past Medical History Medical History Medical history GERD hyperlipidemia hypertension Surgical History Female Surgical History no surgical history Psychiatric History Psychiatric history no psych history Social History Smoking Status Never smoker Smokeless Tobacco Status No Alcohol use none Drug use none Occupational status retired Current living situation Home With Family Activity level Uses cane/walker Recent Out of Country Travel Within the Yes Last 8 Weeks Exposure or Possible Exposure to Illness No During Travel Family History-Meaningful Use Family Member Father History Unknown Yes Living Status Mother History Unknown Yes Living Status Spiritual Needs Spiritually Assessment Spiritual Referral None Psychosocial Psychosocial Over Age 75 and Lives Alone or Over Age Yes 80 Potential Need for Follow-up Care (ECF, Yes Home Health, ECT) Suspected Abuse or Neglect No Suicidal or Homicidal Ideation No Social Service Consult Needed Yes Functional Assessment Occupation Employment Status Retired Functional Ability Eating (Feeding) Ability Independent Bathing Ability Independent Upper Body Dressing Ability Standby Assistance Lower Body Dressing Ability Standby Assistance Ambulation Ability Independent Toileting Ability Independent Bowel and Bladder Bladder Occasionally Incontinent Bowel Continent Normal Bowel Pattern Daily Intake and Output, Strict Start: 01/11/17 18: 19 Text: Status: Active Freq: Q8H Created 01/11/17 18:19 [facility] (Rec: 01/11/17 18:19 BAT [id number]) Document 01/11/17 19:57 SPG (Rec: 01/11/17 19:58 SPG [id number]) Intake and Output Output Number of Voids 1 Urine Color Straw Number of Bowel Movements (bowel 1 movements) Stool Size Large Stool Consistency loose Document 01/11/17 20:17 CNJ (Rec: 01/11/17 20:30 CNJ [id number]) Intake and Output Intake Intake, Oral Amount (ml) 0 Output Output, Urine Amount (ml) 0 Intermittent pneumatic compression Start: 01/11/17 20: 35 Freq: .CONTINUOUS Status: Active Created 01/11/17 20:47 [id number] (Rec: 01/11/17 20:47 BKG DAEMON CORRECTION-BG16 ) Measure intake and output Start: 01/11/17 20: 37 Freq: QSHIFT Status: Active Created 01/11/17 20:47 [id number] (Rec: 01/11/17 20:47 BKG DAEMON CORRECTION-BG16 ) Measure weight Start: 01/11/17 18: 19 Freq: Status: Active Created 01/11/17 18:19 BAT (Rec: 01/11/17 18:19 BAT [id number]) Document 01/11/17 19:20 SPG (Rec: 01/11/17 19:20 SPG [id number]) Height and Weight Weight Weight 67.177 kg Weight Measurement Method Built in [facility] Measure weight Start: 01/11/17 20: 37 Freq: DAILY Status: Active Created 01/11/17 20:47 [id number] (Rec: 01/11/17 20:47 BKG DAEMON CORRECTION-BG16 ) Oxygen Delivery Nasal Cannula 2 lpm Start: 01/11/17 20: 38 Freq: Status: Active Created 01/11/17 20:47 [id number] (Rec: 01/11/17 20:47 BKG DAEMON CORRECTION-BG16 ) Oxygen administration Start: 01/11/17 18: 19 Freq: Q12H Status: Active Created 01/11/17 18:19 BAT (Rec: 01/11/17 18:19 BAT [id number]) Document 01/11/17 20:17 CNJ (Rec: 01/11/17 20:30 CNJ 2A17) Oxygen Oxygen O2 Sat by Pulse Oximetry (95-100 %) 92 L Oxygen Delivery Method Nasal Cannula Oxygen Flow Rate (LPM) 2 FIO2 (%) 28 Patient Belongings Start: 01/11/17 18: 19 Freq: .ONCE Status: Active Created 01/11/17 18:19 BAT (Rec: 01/11/17 18:19 BAT [id number]) Document 01/11/17 18:59 BAT (Rec: 01/11/17 19:07 BAT [id number]) Patient Belongings Belongings With Patient Belongings With Patient on Admission Yes Patient Belongings Disposition At Bedside Patient Belongings Pants Purse Shirt Shoes Socks Patient Rounding Start: 01/11/17 14: 05 Freq: Q30M Status: Active Created 01/11/17 14:05 System (Rec: 01/11/17 14:05 System [id number]) Patient Rounding Start: 01/11/17 18: 19 Freq: Q1H Status: Active Created 01/11/17 18:19 BAT (Rec: 01/11/17 18:19 BAT [id number]) Document 01/11/17 19:57 SPG (Rec: 01/11/17 19:58 SPG 2A11) Hourly Rounding Hourly Rounding Hourly Rounding Checked for Patient Positioning Patient Helped to Bathroom or Assisted with Bedpan or Urinal Patient Personal Items Placed Within Reach Checked Patient Pain Level Hourly Rounding Completed Yes Patient Awake Is family present? Yes Equipment Equipment in Use Specialty Bed Safety Safety Call Light Within Reach Bed Position Low Fall Precautions Phone Within Reach Bed Brake On Side Rails Up X2 Are the Floors Free From Trip Hazards? Yes Is the Room Free From Clutter? Yes Turn and Postion Position Bedrest No Document 01/11/17 20:17 CNJ (Rec: 01/11/17 20:30 CNJ 2A17) Hourly Rounding Hourly Rounding Hourly Rounding Checked for Patient Positioning Patient Helped to Bathroom or Assisted with Bedpan or Urinal Patient Personal Items Placed Within Reach Checked Patient Pain Level Hourly Rounding Completed Yes Patient Awake Is family present? Yes Equipment Equipment in Use Specialty Bed Safety Safety Call Light Within Reach Bed Position Low Fall Precautions Phone Within Reach Bed Brake On Side Rails Up X2 Are the Floors Free From Trip Hazards? Yes Is the Room Free From Clutter? Yes Turn and Postion Position Bedrest No Turn Q 2HR No Patient Position Back Positioning Aides Pillows Peripheral venous cannula mgmt/flush Start: 01/11/17 20: 36 Freq: CONT Status: Active Created 01/11/17 20:47 [id number] (Rec: 01/11/17 20:47 BKG DAEMON CORRECTION-[id number] ) Quick Screen Start: 01/11/17 14: 05 Freq: Status: Active Created 01/11/17 14:05 System (Rec: 01/11/17 14:05 System [id number]) RT Continuous Pulse Oximetry Start: 01/11/17 14: 05 Freq: Status: Active Created 01/11/17 14:05 System (Rec: 01/11/17 14:05 System [id number]) RT Continuous Pulse Oximetry Start: 01/11/17 20: 37 Freq: CONT Status: Active Created 01/11/17 20:47 [id number] (Rec: 01/11/17 20:47 BKG DAEMON CORRECTION-BG16 ) RT Continuous Pulse Oximetry Start: 01/11/17 20: 42 Freq: .ONCE Status: Active Created 01/11/17 20:47 [id number] (Rec: 01/11/17 20:47 BKG DAEMON CORRECTION-BG16 ) RT has an order or consult Start: 01/11/17 20: 37 Freq: NOW Status: Active Created 01/11/17 20:47 [id number] (Rec: 01/11/17 20:47 BKG DAEMON CORRECTION-BG16 ) Saline lock insertion/management Start: 01/11/17 14: 05 Freq: Status: Active Created 01/11/17 14:05 System (Rec: 01/11/17 14:05 System [id number]) Document 01/11/17 14:18 RB (Rec: 01/11/17 14:19 RB [id number]) IV Insertion/Site Assessment IV Location Left Hand IV Established BLUEPRINTER Yes: CFD Date of Insertion 01/11/17 Reason for IV Insertion Replace Lost Fluids Provide Access for IV Medication(s) Provide Access for Emergency IV Catheter Type Peripheral IV Gauge (gauge) 18 Site Observation Patent Dressing Applied Transparent Dressing Sepsis Screening Start: 01/11/17 18: 19 Freq: Q8H Status: Active Created 01/11/17 18:19 BAT (Rec: 01/11/17 18:19 [id number] Document 01/11/17 20:17 [facility] (Rec: 01/11/17 20:30 [place] [id number]) Sepsis Screening Level 1 Infection Sepsis Infection Criteria Present confirmed infection Level 2 SIRS Sepsis SIRS Criteria WBC > 12k or < 4k or bands > 10% Response Sepsis Screen No Definite Risk Sepsis Action Taken no action required Skin Risk Assessment Scale Start: 01/11/17 18: 19 Text: * Bed and chairbound individuals or those with Status: Active impaired ability to reposition should be assessed upon admission for their risk of developing pressure ulcers * Patients with established pressure ulcers should be reassessed periodically. Freq: Q12H Created 01/11/17 18:19 [facility] (Rec: 01/11/17 18:19 [id number] Document 01/11/17 20:17 [facility] (Rec: 01/11/17 20:30 [facility]) Skin Risk Assessment Scale Skin Risk Moisture Risk Occasionally Moist Sensory Perception Slightly Limited Activity Risk Walks Occasionally Mobility Risk Slightly Limited Nutrition Risk Adequate Friction & Shear Risk Potential Problem Skin Risk Total Score (points) 17 Query Text:Patients with a total score of 16 or less are considered to be at risk of developing pressure ulcers: - 15 or 16 = Low Risk - 13 or 14 = Moderate Risk - 12 or less = High Risk Supplemental oxygen titration Start: 01/11/17 14: 05 Freq: Status: Active Created 01/11/17 14:05 System (Rec: 01/11/17 14:05 System [id number]) System Review Start: 01/11/17 18: 19 Text: Status: Active Freq: Q8H Created 01/11/17 18:19 [facility] (Rec: 01/11/17 18:19 [id number]) Document 01/11/17 20:17 [facility] (Rec: 01/11/17 20:30 [facility] ) Pain Assessment Pain Present Pain Present Reports No Pain Neurological Assessment Coma Scale Eye Opening Spontaneous Motor Obeys Commands Verbal Oriented Coma Scale Total 15 Orientation Neurologic Status Alert Patient Orientation Person Place Time Cognitive Patient Behavior Cooperative Mood Description Calm Relaxed Strength All Four Limbs Strength Mild Weakness Epidemiology Internship Machine Striper Strength Equal Bilat Weak Push/Pull Push/Pull Equal Bilat Weak Numbness and Tingling Numbness/Tingling No Face Facial Symmetry Symmetrical Reflexes Blink Present Cough/Gag Normal Doll's-Eye Absent Comment: Neurological Comment: Patient is from [place], speaks NO MONGOLIAN. Using daughter to interpret during assessment. Patient is cooperative. Assessment limited d/t language barriers. Cardiovascular Assessment Signs and Symptoms Signs and Symptoms Nausea Heart Sounds Heart Sounds S1 & S2 Pulse Rhythm Regular Circulation Jugular Vein Distention None Capillary Refill < 3 Seconds Pulse Right Radial 2+ Left Radial 2+ Right Dorsalis Pedis 2+ Left Dorsalis Pedis 2+ Chest Pain Chest Pain Complaint No Mechanical Prophylaxis Mechanical Prophylaxis No Cardiac Monitoring Cardiac Monitoring Heart Rate 87 Monitoring Method Telemetry Rhythm Sinus Rhythm UT Interval 0.10 QRS Interval 0.13 QT Interval 0.36 Monitor Information Monitor Number 000 Respiratory Assessment Observation Effort Normal for Patient Depth Normal Respiratory Pattern Regular Inspection Chest Shape Normal Lung Sounds All Lung Ceja Diminished Inspiratory Rhonchi Oxygen Oxygen Delivery Method Nasal Cannula Oxygen Flow Rate (LPM) 2 FIO2 (%) (%) 28 Cough Cough Description None Sputum Sputum Amount None Comment: Respiratory Comment: No cough or sputum noted. Per daughter, patient states she is able to breath easier since last night. Gastrointestinal Assessment Associated GI Symptoms Abdomen Description Soft Non-Tender 3 or more loose stools, in less than 24 Yes: diarrhea hours Nausea & Vomiting Nausea/Vomiting Presence Nauseated Comment: GI Comment: Patient's daughter reports the patient has had diarrhea Bowel Sounds All Four Quadrants Active Genitourinary Assessment Symptoms Genitourinary Symptoms None Voiding Pattern Bladder Pattern Normal Voiding Method Toilet Bedside Commode Palpation Bladder Distention None Suprapubic Tenderness with Palpation No Comment: Comment: No urine to assess Integumentary Assessment Fingernails Nail Bed Appearance Pale Skin Temperature Warm Moisture Dry Turgor Normal Color Normal All Pressure Points Assessed No Evidence of Incision/Wounds/Breakdown No Oral Cavity Assessment Mucous membranes moist, pink and intact Yes Oral Cavity Normal Musculoskeletal Assessment Symptoms Musculoskeletal Symptoms Generalized Weakness Teaching Record Start: 01/11/17 18: 19 Text: Status: Active Freq: Q12H Created 01/11/17 18:19 BAT (Rec: 01/11/17 18:19 NAOMI [id number]) Document 01/11/17 20:17 ROSE (Rec: 01/11/17 20:30 CNJ 2A17) Teaching Record: General Topic Education Provided: Details Discussed with family and patient that an official court interpreter is not available at this time. Educated family and patient on use of images and pictures to relay messages to the caregivers. Reinforced call light. Thrombosis Risk Factor Assessment Start: 01/11/17 18: 19 Freq: .ONCE Status: Active Created 01/11/17 18:19 BAT (Rec: 01/11/17 18:19 BAT [id number]) Document 01/11/17 18:59 BAT (Rec: 01/11/17 19:07 BAT [id number]) Thrombosis Risk Factor Assessment Choose All That Apply Each Risk Factor Represents 3 Points Age over 75 years Total Risk Factor Score 3 Risk Level Higher Risk Triage Start: 01/11/17 14: 05 Freq: Status: Active Created 01/11/17 14:05 System (Rec: 01/11/17 14:05 System [id number]) Document 01/11/17 14:08 RB (Rec: 01/11/17 14:18 RB [id number]) Triage ISABELL/Chief Complaint Chief Complaint triage ED Fever Patient Stated Complaint Fever / Diarrhea / Dizzy ISABELL 3 Onset (ago) hour(s) Description of Symptoms symptoms started this am, recent travel to [facility] within the month General Appearance alert Work Related Injury? No Query Text:If yes, follow first report of injury/systoc recommendation for employee follow up. Arrival Mode of arrival EMS Arrival via EMS [facility] Source EMS Limitations language barrier Vital Signs Temperature (97.6 F-99.6 F) 100.9 F H Temperature Source Oral Pulse Rate (beats/min) 101 Respiratory Rate (breaths/min) 16 Blood Pressure (mm Hg) 173/67 O2 Sat by Pulse Oximetry (95-100 %) 92 L Oxygen Delivery Nasal Cannula Height/Weight Height 1.65 m Weight 58.967 kg Weight Measurement Method Estimated by Staff Pain Pain Scale 4 Pain Scale Used Standard (1-10) Medical History Medical history GERD hypertension other Additional medical history PMH Vertigo Surgical History Female surgical history non-contributory Psychiatric History Psychiatric history no psych history Social History Smoking Status Never smoker Smokeless Tobacco Status No Alcohol Use none Drug Use none Patient resides with/at Other Relative Safety Concerns Feels Safe At This Time Do you currently feel hopless, have No thoughts of self harm, or thoughts of harming others History of fall in last 14 days? No Female History Hx Now No [employer] history no [employer] history Coma Scale Coma Scale Eye Opening Spontaneous Coma Scale Motor Response Obeys Commands Coma Scale Verbal Response Oriented Coma Scale Total 15 Vital Signs Assessment Start: 01/11/17 14: 05 Freq: Status: Inactive Created 01/11/17 14:05 System (Rec: 01/11/17 14:05 System [id number]) Document 01/11/17 17:17 RB (Rec: 01/11/17 17:17 RB [id number]) ED Vital Signs Pain Pain Reported No Pain Reported Blood Pressure Blood Pressure (mm Hg) 154/61 Pulse Pulse Rate (beats/min) 85 Respirations Respiratory Rate (breaths/min) 18 Oxygen Delivery Pulse Oximetry (95-100 %) 93 L Oxygen Delivery Nasal Cannula Edit Status 01/11/17 18:19 BAT (Rec: 01/11/17 18:19 BAT [id number]) Active=>Inactive Vital Signs Assessment Start: 01/11/17 18: 19 Freq: Q4H Status: Active Created 01/11/17 18:19 BAT (Rec: 01/11/17 18:19 BAT [id number]) Document 01/11/17 19:20 SPG (Rec: 01/11/17 19:21 SPG [id number]) Vital Signs with MEWS Temperature Temperature (97.6 F-99.6 F) 99.5 F Temperature Source Oral Pulse Pulse Rate (beats/min) 93 Respirations Respiratory Rate (breaths/min) 20 Pulse Oximetry (95-100 %) 92 L Oxygen Delivery Room Air Blood Pressure Blood Pressure (mm Hg) 152/72 Blood Pressure Location Left Femoral Artery Position Supine MEWS Score Neuro Status *recalled from last Alert documentation MEWS Score 1 Vital Signs Assessment Start: 01/11/17 20: 35 Freq: Q4H Status: Active Created 01/11/17 20:47 [id number] (Rec: 01/11/17 20:47 BKG DAADAM CORRECTION-BG16 ) Wound Assessment Start: 01/11/17 18: 19 Freq: Q8H Status: Active Created 01/11/17 18:19 BAT (Rec: 01/11/17 18:19 BAT [id number])
[2017-01-11] MEDS ORDERED: Dextromethorphan Polistrx(12h) 30 MG/5 ML UDC PO SCH (21:00)
[2017-01-11 22:02] LABS: VBG HCO3 26.6 mEq/L (21-27); VBG PH 7.42 pH Units (7.32-7.42)
[2017-01-11] MEDS ORDERED: Pantoprazole 40 MG VIAL IVP STA (22:06)
[2017-01-11] MEDS ORDERED: GI Cocktail 40 ML EACH PO ONE (22:07)
[2017-01-11] MEDS ORDERED: *HR* Enoxaparin 30 MG/0.3 ML SYRINGE SQ ONE (22:45)
[2017-01-11] MEDS: Ipratropium/Albuterol Neb 3 ML IH SCH (23:58)
[2017-01-12] MEDS: Ipratropium/Albuterol Neb 3 ML IH SCH ×4 (04:16→22:39)
[2017-01-12] MEDS: *HR* Enoxaparin 30 MG/0.3 ML SYRINGE SQ SCH (05:32)
[2017-01-12 05:33] LABS: INR 1.2; Prothrombin Time 12.5 Seconds (9.4-12.1)
[2017-01-12 05:42] LABS: Activated Partial Thrombo Time 39.8 Seconds (26.0-36.0)
[2017-01-12 06:02] LABS: Albumin 2.9 g/dL (3.5-5.0); Albumin/Globulin Ratio 0.8 (1.1-2.2); Bilirubin,Total 0.5 mg/dL (0.2-1.2); Calcium 8.1 mg/dL (8.6-10.8); Globulin 3.7 g/dL (2.4-3.5); Magnesium 1.5 mg/dL (1.6-2.6); Phosphorous 3.3 mg/dL (2.3-4.7); Potassium 3.2 mEq/L (3.5-4.5); Total Protein 6.6 g/dL (6.0-8.3)
[2017-01-12 06:04] LABS: Ionized Calcium 1.06 mmol/L (1.15-1.35)
[2017-01-12 06:53] LABS: Thyroid Stimulating Hormone 0.281 mcIU/mL (0.350-4.840)
[2017-01-12 08:02] LABS: Hematocrit 31.3 % (35.3-44.9); Hemoglobin 10.2 g/dL (11.5-15.4); Mean Corpuscular HGB Conc 32.6 g/dL (31.6-35.5); Mean Corpuscular Hemoglobin 29.1 pg (28.0-33.3); Mean Corpuscular Volume 89.2 fL (83.0-100.0); Mean Platelet Volume 11.6 fL (9.4-12.4); Platelet Count 174 K/mcL (140-400); Red Blood Count 3.51 M/mcL (3.82-4.97); Red Cell Distribution Width 13.1 % (11.5-14.5)
[2017-01-12 08:23] LABS: Lymphocytes # 1.5 K/mcL (0.6-4.6); Monocytes # 0.2 K/mcL (0.0-1.3); Neutrophils # 4.2 K/mcL (1.6-8.9)
[2017-01-12 08:24] LABS: Platelet Estimate Normal (Normal)
[2017-01-12] MEDS ORDERED: Pantoprazole 40 MG VIAL IVP SCH (09:00)
[2017-01-12] MEDS ORDERED: Azithromycin 500 MG in D5% in Water 250 ML IVPB SCH (09:00)
[2017-01-12] MEDS: Loratadine 10 MG TABLET PO SCH (10:54)
[2017-01-12] MEDS: *HR* OxyCODONE Immed Rel 5 MG TABLET PO PRN ×2 (10:54→21:26)
[2017-01-12] MEDS ORDERED: Magnesium Sulfate 2 GM in D5% in Water 100 ML IVPB ONE (11:51)
[2017-01-12] MEDS ORDERED: Acetaminophen 325 MG TABLET PO PRN (11:51)
[2017-01-12] MEDS ORDERED: Ondansetron 4 MG/2 ML VIAL IVP PRN (14:54)
--- NOTE | 2017-01-12 14:56 | Internal Med Progress Note ---
Date of Encounter: 01/11/17 Time of Encounter: 14:54 - Assessment and plan (1) Gastroenteritis Current Visit: Yes Status: Acute Assessment and plan: her symptoms just started yesterday. its most likely GE possible viral. much better today, she does have a h/o travel to [facility] recently/. no h/o recent antibiotic use. will check stool for ova/parasites and bacteria. supportive tx with IIVF, analgesics and antiemetics. anticipate self remission. (2) Shoulder pain, right Current Visit: Yes Status: Acute Assessment and plan: unclear etiology, no redness or swelling ?osteoarthritis. no h/o fall will get x- ray Rt. shoulder. cover with prn analgesics Qualifiers: Chronicity: acute Qualified Code(s): M25.511 - Pain in right shoulder - Time Spent With Patient 25 - 35 minutes - Subjective Interval history: jeremy seen at the bedside with the daughter and the bedside personnel security specialist. she was brought in for nausea, vomiting and fever, diarrhea and abdominal pain that started yesterday. still has diarrhea and some nausea however reports that she feels much better today. denies any symptoms before that. - Constitutional Vitals: Temp Pulse Resp BP Pulse Ox 98.9 F 91 20 161/57 100 01/12/17 11:27 01/12/17 11:27 01/12/17 11:27 01/12/17 11:27 01/12/17 11:27 General appearance: Present: cooperative, A&O X 3, no acute distress, answers questions appropriately Exam: - Head Head exam: Present: atraumatic, normal inspection, normocephalic - Eye Eye exam: Present: EOMI, PERRL, conjuntiva pink, sclera anicteric Pupils: Present: normal accommodation, PERRL - ENT ENT exam: Present: mucous membranes moist, normal oropharynx - Neck Neck exam general surgery: Present: full ROM, supple, trachea midline. Absent: lymphadenopathy, nuchal rigidity - Respiratory Respiratory exam: Present: b/l clear Absent: accessory muscle use, CTAB, rales , rhonchi, stridor - Cardiovascular Cardiovascular exam: Present: distant heart sounds, RRR, +S1, +S2, tachycardia. Absent: diastolic murmur, gallop, rubs, systolic murmur - GI/Abdominal GI/Abdominal exam: Present: hyperactive bowel sounds, soft, tenderness, no peritoneal signs. Absent: distended, mass - Extremities Exam Extremities exam: Present: full ROM, warm, radial pulses palpable and symetrical. Absent: calf tenderness, cyanotic, pedal edema - Neurological Exam Neurological exam: Present: alert, CN II-XII intact, oriented X3, no focal deficits. Absent: pronater drift, facial droop, speech deficit Internal Medicine: Result - Labs CBC & Chem 7: 01/12/17 04:33 01/12/17 04:33 Labs: Short CBC 01/12/17 Range/Units 04:33 WBC 6.7 (4.3-11.1) K/mcL Hgb 10.2 L (11.5-15.4) g/dL Hct 31.3 L (35.3-44.9) % Plt Count 174 (140-400) K/mcL Neutrophils # 4.2 (1.6-8.9) K/mcL BMP 01/12/17 04:33 Sodium 131 L Potassium 3.2 L Chloride 99 Carbon Dioxide 23 BUN 16 Creatinine 1.07 Glucose 138 H Calcium 8.1 L Cardiac Enzymes 01/11/17 01/12/17 01/12/17 Range/Units 21:48 04:33 10:09 Troponin I 0.02 0.01 0.00 (0-0.03) ng/mL Liver Function 01/12/17 Range/Units 04:33 Total Bilirubin 0.5 (0.2-1.2) mg/dL AST 17 (5-34) Units/L ALT 8 (0-55) Units/L Alkaline Phosphatase 54 (38-126) Units/L Albumin 2.9 L (3.5-5.0) g/dL - ABG Interpretation ABG results: PT/INR, D-dimer PT 12.5 Seconds (9.4-12.1) H 01/12/17 04:33 - Impressions Impressions Chest CTA 01/12/17 03:25 IMPRESSION: 1. No evidence of pulmonary embolism or acute pulmonary abnormality. 2. Large left thyroid nodule. This has not changed significantly compared to a prior CT scan of the neck dated 02/17/2015. D/ / Brad Lebron MD / Brad Lebron MD Interpreting Provider: Brad Lebron MD Consult Discharge Plan - Plan Referrals: NO,PCP [Primary Care Provider] -
[2017-01-12 15:54] LABS: Hemoglobin A1C 5.7 %
[2017-01-12] MEDS: 0.9 % Sodium Chloride 1,000 ML IVC SCH (19:01)
[2017-01-13] MEDS: Ipratropium/Albuterol Neb 3 ML IH SCH ×3 (04:57→15:42)
[2017-01-13] MEDS: *HR* Enoxaparin 30 MG/0.3 ML SYRINGE SQ SCH (05:28)
[2017-01-13] MEDS: 0.9 % Sodium Chloride 1,000 ML IVC SCH (05:29)
[2017-01-13] MEDS: Loratadine 10 MG TABLET PO SCH (08:11)
[2017-01-13] MEDS: *HR* OxyCODONE Immed Rel 5 MG TABLET PO PRN ×2 (08:12→16:01)
--- NOTE | 2017-01-13 09:38 | Discharge Summary ---
Date of Encounter: 01/13/17 Time of Encounter: 09:36 - Discharge Diagnosis (1) Gastroenteritis Priority: Primary Status: Acute (2) Shoulder pain, right Priority: Primary Status: Acute Qualifiers: Chronicity: acute Qualified Code(s): M25.511 - Pain in right shoulder - Discharge Medications Prescriptions: HYDROcodone/Acet 5/325 mg [Carson 5-325 mg] 1 tab PO Q6H PRN #10 tab PRN Reason: Pain Home Medications: Loratadine [Claritin] 10 mg PO DAILY 01/11/17 [History] Meclizine HCl [Verticalm] 25 mg PO DAILY 01/11/17 [History] Omeprazole [PriLOSEC] 20 mg PO DAILY 01/11/17 [History] Rosuvastatin Calcium [Crestor] 10 mg PO HS 01/11/17 [History] HYDROcodone/Acet 5/325 mg [Carson 5-325 mg] 1 tab PO Q6H PRN #10 tab 01/13/17 [Rx ] Allergies/Adverse Reactions: Allergies No Known Allergies Allergy (Verified 01/17/16 20:18) Procedures/tests Complete & Pending: Procedures Performed prior 72 hours Category Date Time Status CT angio chest [CT] Routine Cat Scan 01/12/17 03:25 Completed ECG 12 lead ECG [ECG] Routine Y 01/11/17 20:35 Ordered Date of admission: 01/11/17 18:17 Primary care physician: PCP NO Consults: 01/11/17 20:36 Consult to Nurse Navigator [CONS] Routine Comment: 01/11/17 20:42 Consult to Occupational Therapy [CONS] Routine Comment: Evaluate, develop and implement POC Consult to Physical Therapy [CONS] Routine Comment: Evaluate, develop and implement POC Discharging clinician: Topher Lara Anticipated date of discharge: 01/13/17 - Patient Status Disposition: Home, Self-Care Condition: Fair Functional capacity at discharge: independent ambulation Overall status at discharge: patient is back to baseline - Discharge Instructions Instructions: Gastroenteritis (DC), Shoulder Pain (GEN) Follow Up With: NO,PCP [Primary Care Provider] - - Diet and Activity Activity: resume usual activities as tolerated Diet: advance to your usual diet Interval History: Ms. Rahman is a 86 year old female [id number] [place] immigrant to the [facility] via the emergency department when she presented via EMS services from home in the company of family with complaints of fever, postural dizziness, generalized weakness and episodes of loose diarrheal stools, nausea, vomitingx1 and urinary incontinencex1. she was started on supportive treatment with IVF, analgesics and anti emetics. she had mild leucocytosis on presentation which resolved. her symptoms are most likely 2/2 gastroenteritis possible viral. she is much better today, she does have a h/o travel to [facility] recently/. no h/o recent antibiotic use. she c/o right shoulder pain that is new. no joint swelling or redness. X-ray was done that showed no bony abnormalities. she has improved clincally and is able to tolerate soft diet without any n/v/d/ she is being dc today in stable condition. Hospital course: Ms. Rahman is a 86 year old female Time spent discussing smoking cessation with patient: more than 10 minutes - Time Spent with Patient Total time spent providing and/or coordinating discharge services: Greater than 30 minutes - Constitutional Vitals: Temp Pulse Resp BP Pulse Ox 97.9 F 104 20 151/50 91 01/13/17 07:21 01/13/17 07:21 01/13/17 07:21 01/13/17 07:21 01/13/17 07:21 General appearance: Present: cooperative, A&O X 3, no acute distress, answers questions appropriately Exam: Head exam: Present: atraumatic, normal inspection, normocephalic - Eye Eye exam: Present: EOMI, PERRL, conjuntiva pink, sclera anicteric Pupils: Present: normal accommodation, PERRL - ENT ENT exam: Present: mucous membranes moist, normal oropharynx - Neck Neck exam general surgery: Present: full ROM, supple, trachea midline. Absent: lymphadenopathy, nuchal rigidity - Respiratory Respiratory exam: Present: b/l clear Absent: accessory muscle use, CTAB, rales , rhonchi, stridor - Cardiovascular Cardiovascular exam: Present: distant heart sounds, RRR, +S1, +S2, tachycardia. Absent: diastolic murmur, gallop, rubs, systolic murmur - GI/Abdominal GI/Abdominal exam: Present: hyperactive bowel sounds, soft, tenderness, no peritoneal signs. Absent: distended, mass - Extremities Exam Extremities exam: Present: full ROM, warm, radial pulses palpable and symetrical. Absent: calf tenderness, cyanotic, pedal edema - Neurological Exam Neurological exam: Present: alert, CN II-XII intact, oriented X3, no focal deficits. Absent: pronater drift, facial droop, speech deficit
[2017-01-13 15:23] VITALS: BP 180/66
== END 2017-01-13 19:30 | disposition home or self-care (01) ==
LOC: EMEROO 14:04 → 2ANU 14:04
PROVIDERS: ADMIT Internal Medicine; ATTEND Internal Medicine Endocrinology, Diabetes & Metabolism